=== PATIENT | female | born 1935 | race Caucasian/White ===

== ENCOUNTER 2017-02-11 04:10 | Emergency (ER) | payer OTHER, BC ==
[~2017-02-11] VITALS: Ht 157.5 cm; Wt 72.1 kg
--- NOTE | ~2017-02-11 | EKG ---
[place] [address] [facility] [place] [address] ELECTROCARDIOGRAM REPORT Name: ECTOR PEARSON [facility] [id number] Admission: 02/11/17 Attend Phys: Discharge: 02/11/17 Date of : 34 Report #: [id number] THIS REPORT FOR: //name// [facility] ED Test Date: 2017-02-11 Test Time: 04:18:04 Pat Name: ECTOR PEARSON Department: Room: Gender: F Leadership Development Consultant: KKODJOVI : 1935 Requested By: Liana Kat Order Number: [id number] MD: Torres Pereyra Measurements Intervals [place] Rate: 60 P: -13 [place]: 206 QRS: 37 QRSD: 98 T: 53 QT: 420 QTc: 420 Interpretive Statements Sinus rhythm Nonspecific ST segment abnormality No previous ECG available for comparison Electronically Signed On 02-11-2017 8:33:41 CDT by Torres Pereyra [email or web address] <ELECTRONICALLY SIGNED> By: Torres Pereyra MD, [facility] 02/11/17 0833 0418 0418 Torres Pereyra MD, FACC /EPI
[2017-02-11] MEDS ORDERED: LEVOTHYROXIN0.137 M1 PO (04:26)
[2017-02-11] MEDS ORDERED: BYSTOLIC 5 MG5 M1 PO (04:26)
[2017-02-11] MEDS ORDERED: ASPIRIN81 M2 PO (04:26)
[2017-02-11] MEDS ORDERED: REQUIP 0.25 M0.25 M1 PO (04:27)
[2017-02-11] MEDS ORDERED: LIORESAL 10 MG10 MG PO (04:27)
[2017-02-11] MEDS ORDERED: NORVASC5 MG PO (04:28)
[2017-02-11] MEDS ORDERED: DICYCLOMINE HCL10 MG PO (04:28)
[2017-02-11] MEDS ORDERED: ONDANSETRON HCL4 M2 PO (04:28)
[2017-02-11] MEDS ORDERED: OXYCONTIN10 M1 PO (04:28)
[2017-02-11] MEDS ORDERED: BUTALB-APAP-CA1 EACH PO (04:29)
[2017-02-11] MEDS ORDERED: NEXIUM 40 MG CA40 M1 PO (04:29)
[2017-02-11 04:31] LABS: ABSOLUTE NEUTROPHILS 5.1 thou/uL (1.4-8.2); BASOPHILS 0.9 % (0.0-2.0); EOSINOPHILS 0.8 % (0.0-3.0); HEMATOCRIT 43.1 % (37.0-47.0); HEMOGLOBIN 14.8 gm/dL (12.0-15.0); LYMPHOCYTES 30.1 % (24.0-44.0); MCH 29.5 pg (26.0-34.0); MCHC 34.4 g/dL (28.0-37.0); MCV 85.9 fL (80.0-100.0); MONOCYTES 6.6 % (1.0-8.0); PLATELET COUNT 199 thou/uL (150-400); POLYS 61.6 % (36.0-66.0); RBC 5.01 mil/uL (4.20-5.00); RDW 13.6 % (10.5-14.5); WBC 8.2 thou/uL (4.0-11.0)
[2017-02-11 04:33] LABS: MANUAL DIFF NO
[2017-02-11 04:40] LABS: CALCIUM 8.9 mg/dL (8.5-10.1); CREATININE 0.6 mg/dL (0.6-1.0); POTASSIUM 4.1 mmol/L (3.5-5.1)
[2017-02-11 05:22] LABS: URINE BILIRUBIN NEGATIVE (Negative); URINE BLOOD NEGATIVE (Negative); URINE COLOR YELLOW; URINE GLUCOSE-RANDOM* NEGATIVE (Negative); URINE KETONES NEGATIVE (Negative); URINE LEUKOCYTES-REFLEX TRACE (Negative); URINE PROTEIN (DIPSTICK) NEGATIVE (Negative); URINE SPECIFIC GRAVITY <= 1.005 (1.003-1.035); URINE UROBILINOGEN 0.2 E.U./dl (0.2-1.0)
[2017-02-11] MEDS ORDERED: ZOFRAN ODT4 MG DISSOLVE (07:10)
[2017-02-11] MEDS ORDERED: ANTIVERT25 MG PO (07:10)
[2017-02-11 07:27] VITALS: BP 141/55
== END 2017-02-11 07:28 | disposition home or self-care (01) ==
LOC: ER 04:10
PROVIDERS: Emergency Medicine
DX: R42 Dizziness and giddiness (principal); R10.30 Lower abdominal pain, unspecified; R51 Headache; Z88.8 Allergy status to other drugs, medicaments and biological substances; Z88.5 Allergy status to narcotic agent

== ENCOUNTER → 2017-04-30 | Outpatient (CLI) | payer OTHER, BC ==
[~2017-04-30] MED LIST: ANTIVERT25 MG PO; ASPIRIN81 M2 PO; BUTALB-APAP-CA1 EACH PO; BYSTOLIC 5 MG5 M1 PO; DICYCLOMINE HCL10 MG PO; LEVOTHYROXIN0.137 M1 PO; LIORESAL 10 MG10 MG PO; NEXIUM 40 MG CA40 M1 PO; NORVASC5 MG PO; ONDANSETRON HCL4 M2 PO; OXYCONTIN10 M1 PO; REQUIP 0.25 M0.25 M1 PO; ZOFRAN ODT4 MG DISSOLVE
== END ==
LOC: SLEEPLAB 14:35
DX: G47.33 Obstructive sleep apnea (adult) (pediatric) (principal)

== ENCOUNTER → 2017-06-04 | Outpatient (CLI) | payer OTHER, BC | LOC: RAD 11:02 | DX: J98.11 Atelectasis (principal) ==

== ENCOUNTER 2017-09-24 18:16 | Emergency (ER) | payer OTHER, BC ==
[~2017-09-24] VITALS: Ht 160 cm; Wt 81.7 kg
--- NOTE | ~2017-09-24 | EKG ---
[place] [address] [facility] [place] [address] ELECTROCARDIOGRAM REPORT Name: ECTOR PEARSON [facility]: [facility] [id number] Admission: 09/24/17 Attend Phys: Discharge: 09/24/17 Date of : 34 Report #: [id number] THIS REPORT FOR: //name// [facility] ED Test Date: 2017-09-24 Test Time: 19:33:24 Pat Name: ECTOR PEARSON Department: Room: Gender: F Deputy Treasurer: MZOOK : 1935 Requested By: Roderick Grajeda Order Number: [id number] MD: Torres Pereyra Measurements Intervals [place] Rate: 80 P: 56 KS: 196 QRS: 27 QRSD: 96 T: 56 QT: 382 QTc: 441 Interpretive Statements Sinus rhythm Borderline T abnormalities, anterior leads Compared to ECG 02/11/2017 04:18:04 T-wave abnormality now present ST (T wave) deviation no longer present Electronically Signed On 09-25-2017 7:48:39 HAM ROLLING MACHINE OPERATOR by Torres Pereyra [email or web address] <ELECTRONICALLY SIGNED> By: Torres Pereyra MD, [facility] 09/25/17 0748 32 32 Torres Pereyra MD, [facility] /EPI
[2017-09-24 19:06] LABS: HEMATOCRIT 40.7 % (37.0-47.0); HEMOGLOBIN 13.7 gm/dL (12.0-15.0); MCH 28.4 pg (26.0-34.0); MCHC 33.8 g/dL (28.0-37.0); MCV 84.2 fL (80.0-100.0); RBC 4.83 mil/uL (4.20-5.00); RDW 14.2 % (10.5-14.5)
[2017-09-24 19:15] LABS: CALCIUM 8.7 mg/dL (8.5-10.1); CREATININE 0.6 mg/dL (0.6-1.0); POTASSIUM 3.9 mmol/L (3.5-5.1)
[2017-09-24 19:21] LABS: APTT 29.6 Seconds (24.5-32.8); PROTIME 9.8 Seconds (9.3-11.4)
[2017-09-24] MEDS ORDERED: GLACIAL ACETIC A1 ML MC (19:42)
[2017-09-24] MEDS ORDERED: NEXIUM40 MG PO (19:42)
[2017-09-24 20:01] LABS: URINE BILIRUBIN NEGATIVE (Negative); URINE BLOOD NEGATIVE (Negative); URINE CLARITY CLEAR; URINE COLOR YELLOW; URINE GLUCOSE-RANDOM* NEGATIVE (Negative); URINE KETONES NEGATIVE (Negative); URINE LEUKOCYTES-REFLEX NEGATIVE (Negative); URINE NITRITE-REFLEX NEGATIVE (Negative); URINE PROTEIN (DIPSTICK) NEGATIVE (Negative); URINE SPECIFIC GRAVITY >= 1.030 (1.005-1.035); URINE UROBILINOGEN 0.2 E.U./dl (0.2-1.0)
[2017-09-24 20:20] VITALS: BP 127/52
[2018-03-18] MEDS ORDERED: ASPIR 8181 MG PO (02:34)
[2018-04-27] MEDS ORDERED: ZOFRAN ODT4 MG DISSOLVE (16:29)
[2018-04-27] MEDS ORDERED: NORFLEX100 MG PO (16:30)
== END 2017-09-24 20:21 | disposition home or self-care (01) ==
LOC: ER 18:16
PROVIDERS: Emergency Medicine
DX: I80.02 Phlebitis and thrombophlebitis of superficial vessels of left lower extremity (principal); Z88.8 Allergy status to other drugs, medicaments and biological substances

== ENCOUNTER 2017-10-03 05:50 | Emergency (ER) | payer OTHER, BC ==
[~2017-10-03] VITALS: Ht 157.5 cm; Wt 76.2 kg
--- NOTE | ~2017-10-03 | EKG ---
[place] [address] [facility] [place] [address] ELECTROCARDIOGRAM REPORT Name: ECTOR PEARSON [facility] [id number] Admission: 10/03/17 Attend Phys: Discharge: 10/03/17 Date of : 34 Report #: [id number] THIS REPORT FOR: //name// [facility] ED Test Date: 2017-10-03 Test Time: 06:03:17 Pat Name: ECTOR PEARSON Department: Room: Gender: F Oim Architect: ISRAEL : 1935 Requested By: Roderick Grajeda Order Number: [id number] MD: Cliff Lan Measurements Intervals [place] Rate: 95 P: 33 [place]: 169 QRS: 59 QRSD: 97 T: 59 QT: 366 QTc: 460 Interpretive Statements Sinus rhythm Borderline T wave abnormalities Compared to ECG 09/24/2017 19:33:24 No significant changes Electronically Signed On 10-03-2017 12:24:14 INVESTOR RELATIONS SPECIALIST by Cliff Lan [email or web address] <ELECTRONICALLY SIGNED> By: Cliff Lan MD 10/03/17 1224 0603 0603 Cliff Lan MD /EPI
[~2017-10-03 05:50] MED LIST changes: +GLACIAL ACETIC A1 ML MC; +NEXIUM40 MG PO
[2017-10-03] MEDS ORDERED: OXYCONTIN20 M1 PO (06:26)
[2017-10-03] MEDS ORDERED: OXYCONTIN10 M1 PO (06:27)
[2017-10-03] MEDS ORDERED: DOXYCYCLINE 10100 MG PO (06:29)
[2017-10-03] MEDS ORDERED: MUCINEX100 MG PO (06:30)
[2017-10-03 07:08] LABS: HEMATOCRIT 42.1 % (37.0-47.0); HEMOGLOBIN 14.1 gm/dL (12.0-15.0); MCH 28.5 pg (26.0-34.0); MCHC 33.6 g/dL (28.0-37.0); MCV 84.8 fL (80.0-100.0); RBC 4.96 mil/uL (4.20-5.00); RDW 13.9 % (10.5-14.5); WBC 6.8 thou/uL (4.0-11.0)
[2017-10-03 08:21] LABS: ALBUMIN 3.5 g/dL (3.4-5.0); CALCIUM 8.7 mg/dL (8.5-10.1); CREATININE 0.6 mg/dL (0.6-1.0); POTASSIUM 3.9 mmol/L (3.5-5.1); TOTAL BILIRUBIN 0.4 mg/dL (<0.1-1.0); TOTAL PROTEIN 6.8 g/dL (6.4-8.2)
[2017-10-03] MEDS ORDERED: PROMETHAZINE/C118 ML PO (08:52)
[2017-10-03 09:01] VITALS: BP 113/74
[2018-03-18] MEDS ORDERED: ASPIR 8181 MG PO (02:34)
[2018-04-27] MEDS ORDERED: ZOFRAN ODT4 MG DISSOLVE (16:29)
[2018-04-27] MEDS ORDERED: NORFLEX100 MG PO (16:30)
== END 2017-10-03 09:06 | disposition home or self-care (01) ==
LOC: ER 05:50
PROVIDERS: Emergency Medicine
DX: R53.1 Weakness (principal); R05 Cough; Z88.8 Allergy status to other drugs, medicaments and biological substances

== ENCOUNTER → 2017-10-07 | Outpatient (CLI) | payer OTHER, BC ==
[~2017-10-07] MED LIST changes: +ASPIR 8181 MG PO; +AUGMENTIN 875-1 EACH PO; +DOXYCYCLINE 10100 MG PO; +LISINOPRIL5 MG PO; +MUCINEX100 MG PO; +NORFLEX100 MG PO; +OXYCONTIN20 M1 PO; +PROMETHAZINE/C118 ML PO
== END ==
LOC: RAD 09:02
DX: R05 Cough (principal)

== ENCOUNTER → 2017-12-31 | Outpatient (CLI) | payer OTHER, BC ==
[~2017-12-31] MED LIST changes: -ASPIR 8181 MG PO; -AUGMENTIN 875-1 EACH PO; -LISINOPRIL5 MG PO; -NORFLEX100 MG PO
== END ==
LOC: SLEEPLAB 10:26
DX: G47.30 Sleep apnea, unspecified (principal)

== ENCOUNTER → 2018-01-01 | Outpatient (CLI) | payer OTHER, BC ==
[2018-01-01 08:18] LABS: CREATININE 0.6 mg/dL (0.6-1.0)
== END ==
LOC: CAT 07:34
DX: R91.8 Other nonspecific abnormal finding of lung field (principal); I70.0 Atherosclerosis of aorta; Z90.49 Acquired absence of other specified parts of digestive tract

== ENCOUNTER 2018-01-23 18:54 | Emergency (ER) | payer OTHER, BC ==
[~2018-01-23] VITALS: Ht 157.5 cm; Wt 75.3 kg
[2018-01-23] MEDS ORDERED: LISINOPRIL5 MG PO (19:17)
[2018-01-23] MEDS ORDERED: AUGMENTIN 875-1 EACH PO (20:35)
[2018-01-23 20:57] VITALS: BP 140/62
== END 2018-01-23 22:03 | disposition home or self-care (01) ==
LOC: ER 18:54
DX: S61.012A Laceration without foreign body of left thumb without damage to nail, initial encounter (principal); W54.0XXA Bitten by dog, initial encounter; Y93.89 Activity, other specified; Y92.89 Other specified places as the place of occurrence of the external cause; Y99.8 Other external cause status; Z88.8 Allergy status to other drugs, medicaments and biological substances

== ENCOUNTER → 2018-02-26 | Outpatient (CLI) | payer OTHER, BC ==
[~2018-02-26] MED LIST changes: +AUGMENTIN 875-1 EACH PO; +LISINOPRIL5 MG PO
== END ==
LOC: RAD 09:11
DX: M19.042 Primary osteoarthritis, left hand (principal)

== ENCOUNTER → 2018-04-30 | Outpatient (CLI) | payer OTHER, BC ==
[~2018-04-30] VITALS: Ht 157.5 cm; Wt 73.5 kg
[~2018-04-30] MED LIST changes: +ASPIR 8181 MG PO; +NORFLEX100 MG PO
--- NOTE | ~2018-04-30 | PATH ---
[facility] [place] [address] PATHOLOGY RPT PROCEDURE Name: MICHELECTOR Room #: REG [facility].#: [id number] Admission: 04/30/18 Date of : 34 Discharge: Report #: [id number] Path Case #: [id number] [facility] Accession Number: [id number] . 01 Material submitted: . PART A: POLYP AT 30 CM PART B: POLYP AT PROXIMAL ASCENDING COLON PART C: POLYP AT 80 CM PART D: POLYP AT 70 CM PART E: POLYP AT RECTUM . 01 Clinician provided ICD-10: Z12.11 R19.4 . 01 Clinical history: . Pre-OP DX: Screening, change in bowel habits Post-OP DX: Colon polyps . 02 Diagnosis: A. Polyp, at 30 cm, endoscopic biopsy: - Tubular adenoma. - Negative for high-grade dysplasia. . B. Polyp, at proximal ascending colon, endoscopic biopsy: - Inflamed tubular adenoma. - Negative for high-grade dysplasia. . C. Polyp, at 80 cm, endoscopic biopsy: - Tubular adenoma. - Negative for high-grade dysplasia. . D. Polyp at 70 cm, endoscopic biopsy: - Compatible with a hyperplastic polyp, minute. - Negative for dysplasia. . E. Polyp, at rectum, endoscopic biopsy: - Tubular adenoma. - Negative for high-grade dysplasia. (IUV:natalie; 05/03/2018) QMS/05/03/2018 . 02 Electronically signed: . Reanna Persaud MD, Pathologist NPI- [id number] . 01 Gross description: . [facility] [address] [place] [address] PATHOLOGY RPT PROCEDURE Name: ECTOR PEARSON Room #: REG [facility]#: [id number] Admission: 04/30/18 Date of : 34 Discharge: Report #: [id number] Path Case #: [id number] A. Received in formalin labeled "Ector Pearson, polyp at 30 cm," are 3 segments of finley soft tissue measuring 1.3 x 0.8 x 0.5 cm in aggregate dimensions and ranging from 0.5 to 0.6 cm in maximum dimension. The specimen is submitted entirely in cassette A1. . B. Received in formalin labeled "Ector Pearson, polyp at proximal ascending colon," is a single segment of finley soft tissue measuring 0.5 cm in maximum dimension. The specimen is entirely submitted in cassette B1. . C. Received in formalin labeled "cEtor Pearson, polyp at 80 cm," is a single segment of finley soft tissue measuring 0.5 cm in maximum dimension. The specimen is entirely submitted in cassette C1. . D. Received in formalin labeled "Ector Pearson, polyp at 70 cm" is a single segment of finley soft tissue measuring 0.4 cm in maximum dimension. The specimen is entirely submitted in cassette D1. . E. Received in formalin labeled "Ector Pearson, polyp rectum," is a single segment of finley soft tissue measuring 0.6 cm in maximum dimension. The specimen is entirely submitted in cassette E1. (TSD; 04/30/2018) TOB/TOB . 02 Pathologist provided ICD-10: D12.6, D12.2, K63.5, D12.8 . 02 CPT . 375256, 564314, 802625, 615606, 329950 Specimen Comment: A courtesy copy of this report has been sent to Specimen Comment: [phone], . Specimen Comment: Report sent to and Specimen Comment: A duplicate report has been generated due to demographic updates. Performed at: [address], [place], [place] [id number] MD Saji Delgadillo MD Phone: [phone] Performed at: [address] [facility] [address] [id number] MD Reanna Persaud MD Phone: [phone]
--- NOTE | ~2018-04-30 | P ---
[facility] [place] [address] PROCEDURE REPORT Name: ECTOR PEARSON Room #: REG [facility]#: [id number] Admission: 04/30/18 Attend Phys: Vasyl Choi MD Discharge: Date of : 34 Report #: [id number] THIS REPORT FOR: //name// CC: Vasyl Pena BRIEF HISTORY: The patient is an 83-year-old woman with change of bowel habits and worsening constipation. She has also had diffuse lower abdominal pain as well. PREOPERATIVE DIAGNOSIS: Change in bowel habits and abdominal pain. POSTOPERATIVE DIAGNOSIS: Multiple colon polyps. MEDICATIONS: Deep sedation with propofol and ketamine. SPECIMENS: 1. Polyp from 30 cm. 2. Polyp, proximal ascending colon. 3. Polyp at 80 cm. 4. Polyp at 70 cm. 5. Rectal polyp. ESTIMATED BLOOD LOSS: 3 mL. PROCEDURE: Colonoscopy to cecum and terminal ileum with snare polypectomy and biopsy. FINDINGS: Prior to propofol sedation, procedure of colonoscopy was discussed with the patient as well as potential risks and its complications. She indicates she understands and desires to proceed. With the patient in left lateral decubitus position, digital examination was completed, which revealed no abnormalities. Subsequently, the Olympus video colonoscope was introduced in the rectum, advanced under direct vision to the cecum. Done with minimal difficulty. Cecum was reached, identified by the ileocecal valve and the appendiceal orifice. I was able to visualize the distal segment of the terminal ileum, which was inspected and noted to be unremarkable. At that point, the scope was slowly withdrawn and careful circumferential views were obtained. Upon slow withdrawal of the scope, the prep was good. The mucosa was within normal limits, normal vascular pattern, normal light reflex. As we withdrew the scope, a diminutive polyp was seen and identified in the proximal ascending colon, removed with biopsy forceps. The scope was further withdrawn and a 4 mm polyp was seen at 80 cm, removed with multiple biopsies. At 70 cm, a diminutive polyp was seen and removed by forceps biopsies. At 30 cm, a 6 mm sessile polyp was seen and removed by cold snare polypectomy. In the [address] [address] PROCEDURE REPORT Name: ECTOR PEARSON Room #: REG [facility].#: [id number] Admission: 04/30/18 Attend Phys: Vasyl Choi MD Discharge: Date of : 34 Report #: [id number] rectum, a 3 x 6 mm sessile polyp was seen and removed by cold snare polypectomy. Additional findings included mild sigmoid diverticular disease. Upon retroflexion, no additional abnormalities were seen. Scope was withdrawn and the patient tolerated the procedure. CONDITION OF THE PATIENT UPON DISCHARGE: Following procedure, the patient drowsy, aroused, conversant and will be discharged home when fully ambulatory. INSTRUCTIONS TO THE PATIENT AND FAMILY AT THE TIME OF DISCHARGE: As for change in bowel habits and constipation, abdominal pain, I do not see any obstructing lesions. I suggest high-fiber diet. We will discuss with the patient, we could try Linzess 145 mcg daily. If that does not alleviate her symptoms, she is to return for followup in the office. As far as her abdominal pain, I do not see any lesions to explain pain. If pain continues to be a problem, she should follow up with Dr. Christo Pena. Potentially, a CT scan of the abdomen and pelvis not done may be a consideration. Previous colonoscopy was about 5 years ago per the patient report. Withdrawal time from the cecum was 13 minutes and 59 seconds. <ELECTRONICALLY SIGNED> By: Vasyl Choi MD 05/10/18 1044 1126 1257 Vasyl Choi MD /nt
== END | disposition home or self-care (01) ==
LOC: GI 08:27
DX: D12.2 Benign neoplasm of ascending colon (principal); D12.5 Benign neoplasm of sigmoid colon; D12.4 Benign neoplasm of descending colon; D12.8 Benign neoplasm of rectum; K63.5 Polyp of colon; K57.30 Diverticulosis of large intestine without perforation or abscess without bleeding; I10 Essential (primary) hypertension; G47.33 Obstructive sleep apnea (adult) (pediatric); K21.9 Gastro-esophageal reflux disease without esophagitis; Z98.41 Cataract extraction status, right eye; Z98.42 Cataract extraction status, left eye; Z87.19 Personal history of other diseases of the digestive system; Z79.899 Other long term (current) drug therapy; Z85.3 Personal history of malignant neoplasm of breast; Z88.8 Allergy status to other drugs, medicaments and biological substances; Z79.82 Long term (current) use of aspirin
CPT/HCPCS: 62110; 62900

== ENCOUNTER → 2018-06-09 | Outpatient (CLI) | payer OTHER, BC ==
[2018-06-09 09:41] LABS: CREATININE 0.6 mg/dL (0.6-1.0)
== END ==
LOC: CAT 08:58 → EDSTATUS 09:16 → CAT 15:00
PROVIDERS: Family Medicine
DX: I70.0 Atherosclerosis of aorta (principal); R91.8 Other nonspecific abnormal finding of lung field

== ENCOUNTER 2018-06-29 14:12 | Emergency (ER) | payer OTHER, BC ==
[~2018-06-29] VITALS: Ht 157.5 cm; Wt 74.8 kg
--- NOTE | ~2018-06-29 | EKG ---
[place] [address] [facility] [place] [address] ELECTROCARDIOGRAM REPORT Name: ECTOR PEARSON Room #: [facility]#: [id number] Admission: 06/29/18 Attend Phys: Discharge: 06/29/18 Date of : 34 Report #: [id number] THIS REPORT FOR: //name// [facility] ED Test Date: 2018-06-29 Test Time: 14:44:37 Pat Name: ECTOR PEARSON Department: Room: Gender: F Peer Educator: SOPHIE : 1935 Requested By: Vivek Argueta Order Number: [id number] MD: Torres Pereyra Measurements Intervals [place] Rate: 86 P: -3 MS: 185 QRS: 34 QRSD: 100 T: 61 QT: 374 QTc: 448 Interpretive Statements Sinus rhythm No significant abnormality Compared to ECG 10/03/2017 06:03:17 No significant change was found Electronically Signed On 06-30-2018 8:42:37 BLOW MOLD MACHINE OPERATOR by Torres Pereyra [email or web address] <ELECTRONICALLY SIGNED> By: Torres Pereyra MD, [facility] 06/30/18 0842 1444 1444 Torres Pereyra MD, FACC /EPI
[2018-06-29 15:47] LABS: ABSOLUTE NEUTROPHILS 4.6 thou/uL (1.4-8.2); BASOPHILS 0.9 % (0.0-2.0); EOSINOPHILS 1.6 % (0.0-3.0); HEMATOCRIT 44.4 % (37.0-47.0); HEMOGLOBIN 15.1 gm/dL (12.0-15.0); LYMPHOCYTES 32.4 % (24.0-44.0); MCH 28.5 pg (26.0-34.0); MCHC 34.1 g/dL (28.0-37.0); MCV 83.5 fL (80.0-100.0); MONOCYTES 6.9 % (1.0-8.0); PLATELET COUNT 183 thou/uL (150-400); POLYS 58.2 % (36.0-66.0); RBC 5.32 mil/uL (4.20-5.00); RDW 14.7 % (10.5-14.5); WBC 7.9 thou/uL (4.0-11.0)
[2018-06-29 16:02] LABS: ANION GAP 7 mmol/L (7-16); BUN 10 mg/dL (7-18); CALCIUM 8.5 mg/dL (8.5-10.1); CHLORIDE 103 mmol/L (98-107); CO2 30 mmol/L (21-32); CREATININE 0.7 mg/dL (0.6-1.0); GLUCOSE 93 mg/dL (74-106); POTASSIUM 3.8 mmol/L (3.5-5.1); SODIUM 140 mmol/L (136-145); TROPONIN-I <0.06 ng/mL (<0.06)
[2018-06-29] MEDS ORDERED: PERCOCET PO (16:59)
[2018-06-29] MEDS ORDERED: NORFLEX100 MG PO (16:59)
[2018-06-29] MEDS ORDERED: NAPROXEN375 MG PO (16:59)
[2018-06-29 17:30] VITALS: BP 92/56
[2018-06-29 18:28] LABS: CALCIUM 9.3 mg/dL (8.5-10.1); CREATININE 0.7 mg/dL (0.6-1.0)
[2018-06-29 18:35] LABS: ALBUMIN 3.7 g/dL (3.4-5.0); MAGNESIUM 2.2 mg/dL (1.8-2.4); TOTAL BILIRUBIN 0.5 mg/dL (<0.1-1.0); TOTAL PROTEIN 7.4 g/dL (6.4-8.2)
== END 2018-06-29 17:59 | disposition home or self-care (01) ==
LOC: ER 14:12
PROVIDERS: Emergency Medicine
DX: R07.89 Other chest pain (principal); M43.6 Torticollis; M54.16 Radiculopathy, lumbar region; I10 Essential (primary) hypertension; K21.9 Gastro-esophageal reflux disease without esophagitis; G47.30 Sleep apnea, unspecified; Z90.710 Acquired absence of both cervix and uterus; Z90.49 Acquired absence of other specified parts of digestive tract; Z90.13 Acquired absence of bilateral breasts and nipples; Z85.3 Personal history of malignant neoplasm of breast; Z88.8 Allergy status to other drugs, medicaments and biological substances

== ENCOUNTER 2018-08-08 08:33 | Emergency (ER) | payer OTHER, BC ==
[~2018-08-08] VITALS: Ht 157.5 cm; Wt 76.2 kg
[~2018-08-08 08:33] MED LIST changes: +NAPROXEN375 MG PO; +PERCOCET PO
[2018-08-08 08:35] VITALS: BP 156/84
[2018-08-08 09:08] LABS: URINE BILIRUBIN NEGATIVE (Negative); URINE BLOOD NEGATIVE (Negative); URINE CLARITY CLEAR; URINE COLOR YELLOW; URINE GLUCOSE-RANDOM* NEGATIVE (Negative); URINE KETONES NEGATIVE (Negative); URINE LEUKOCYTES-REFLEX TRACE (Negative); URINE NITRITE-REFLEX NEGATIVE (Negative); URINE PROTEIN (DIPSTICK) NEGATIVE (Negative); URINE SPECIFIC GRAVITY 1.015 (1.005-1.035); URINE UROBILINOGEN 0.2 E.U./dl (0.2-1.0)
[2018-08-08 09:49] LABS: ABSOLUTE NEUTROPHILS 6.6 thou/uL (1.4-8.2); BASOPHILS 0.4 % (0.0-2.0); EOSINOPHILS 2.1 % (0.0-3.0); HEMATOCRIT 45.6 % (37.0-47.0); HEMOGLOBIN 15.5 gm/dL (12.0-15.0); LYMPHOCYTES 16.2 % (24.0-44.0); MCH 28.6 pg (26.0-34.0); MCV 84.1 fL (80.0-100.0); MONOCYTES 6.7 % (1.0-8.0); PLATELET COUNT 189 thou/uL (150-400); POLYS 74.6 % (36.0-66.0); RBC 5.43 mil/uL (4.20-5.00); RDW 14.5 % (10.5-14.5); WBC 8.8 thou/uL (4.0-11.0)
[2018-08-08 09:56] LABS: CALCIUM 9.2 mg/dL (8.5-10.1); CREATININE 0.7 mg/dL (0.6-1.0); POTASSIUM 4.1 mmol/L (3.5-5.1)
[2018-08-08] MEDS ORDERED: IBUPROFEN 400400 M2 PO (10:51)
[2018-08-08] MEDS ORDERED: FLONASE 0.05%50 MCG NASAL (10:51)
[2018-08-08] MEDS ORDERED: CLARITIN10 MG PO (10:51)
--- NOTE | 2018-08-08 22:18 | EKG ---
[address] [address] ELECTROCARDIOGRAM REPORT Name: ECOTR PEARSON Room #: DEP [facility]#: [id number] Admission: 08/08/18 Attend Phys: Discharge: 08/08/18 Date of : 34 Report #: [id number] THIS REPORT FOR: //name// [facility] ED Test Date: 2018-08-08 Test Time: 09:13:43 Pat Name: ECTOR PEARSON Department: Room: Gender: F Pot Room Supervisor: as : 1935 Requested By: Tiesha Gillespie Order Number: [id number] MD: Gui Gifford Measurements Intervals [place] Rate: 82 P: 35 KS: 176 QRS: 30 QRSD: 93 T: 73 QT: 377 QTc: 441 Interpretive Statements Sinus rhythm Borderline T abnormalities, anterior leads Compared to ECG 06/29/2018 14:44:37 T-wave abnormality now present Electronically Signed On 08-08-2018 22:18:24 FIRE EATER by Gui Gifford [email or web address] <ELECTRONICALLY SIGNED> By: Gui Gifford MD 08/08/18 2218 2 2 Gui Gifford MD /GIULIANO
== END 2018-08-08 11:14 | disposition home or self-care (01) ==
LOC: ER 08:33
PROVIDERS: Student in an Organized Health Care Education/Training Program
DX: H93.93 Unspecified disorder of ear, bilateral (principal); I10 Essential (primary) hypertension; K21.9 Gastro-esophageal reflux disease without esophagitis; G47.30 Sleep apnea, unspecified; Z90.710 Acquired absence of both cervix and uterus; Z90.49 Acquired absence of other specified parts of digestive tract; Z88.8 Allergy status to other drugs, medicaments and biological substances

== ENCOUNTER 2018-08-29 15:08 | Emergency (ER) | payer OTHER, BC ==
[~2018-08-29] VITALS: Ht 152.4 cm; Wt 62.6 kg
[~2018-08-29 15:08] MED LIST changes: +CLARITIN10 MG PO; +FLONASE 0.05%50 MCG NASAL; +IBUPROFEN 400400 M2 PO
[2018-08-29 16:13] LABS: ABSOLUTE NEUTROPHILS 7.5 thou/uL (1.4-8.2); BASOPHILS 0.3 % (0.0-2.0); EOSINOPHILS 2.4 % (0.0-3.0); HEMATOCRIT 42.7 % (37.0-47.0); HEMOGLOBIN 14.8 gm/dL (12.0-15.0); LYMPHOCYTES 15.6 % (24.0-44.0); MCH 28.6 pg (26.0-34.0); MCHC 34.6 g/dL (28.0-37.0); MCV 82.8 fL (80.0-100.0); MONOCYTES 6.6 % (1.0-8.0); PLATELET COUNT 201 thou/uL (150-400); POLYS 75.1 % (36.0-66.0); RBC 5.15 mil/uL (4.20-5.00); RDW 14.1 % (10.5-14.5)
[2018-08-29 16:22] LABS: CALCIUM 9.2 mg/dL (8.5-10.1); CREATININE 0.7 mg/dL (0.6-1.0); POTASSIUM 4.2 mmol/L (3.5-5.1)
[2018-08-29 16:29] LABS: ALBUMIN 3.6 g/dL (3.4-5.0); TOTAL BILIRUBIN 0.3 mg/dL (<0.1-1.0); TOTAL PROTEIN 7.2 g/dL (6.4-8.2)
[2018-08-29] MEDS ORDERED: AZITHROMYCIN 2250 MG PO (16:38)
[2018-08-29 16:53] VITALS: BP 148/94
== END 2018-08-29 16:53 | disposition home or self-care (01) ==
LOC: ER 15:08
PROVIDERS: Emergency Medicine
DX: J18.9 Pneumonia, unspecified organism (principal); J40 Bronchitis, not specified as acute or chronic; I10 Essential (primary) hypertension; K21.9 Gastro-esophageal reflux disease without esophagitis; Z90.49 Acquired absence of other specified parts of digestive tract; Z90.710 Acquired absence of both cervix and uterus; Z88.8 Allergy status to other drugs, medicaments and biological substances

== ENCOUNTER 2019-08-28 22:29 | Emergency (ER) | payer OTHER, BC ==
[~2019-08-28] VITALS: Ht 157.5 cm; Wt 77.1 kg
[~2019-08-28 22:29] MED LIST changes: +AZITHROMYCIN 2250 MG PO
[2019-08-28 23:53] LABS: ABSOLUTE NEUTROPHILS 5.1 thou/uL (1.4-8.2); BASOPHILS 0.8 % (0.0-2.0); HEMATOCRIT 44.5 % (37.0-47.0); HEMOGLOBIN 14.9 gm/dL (12.0-15.0); LYMPHOCYTES 27.1 % (24.0-44.0); MCH 28.4 pg (26.0-34.0); MCHC 33.5 g/dL (28.0-37.0); MCV 84.8 fL (80.0-100.0); MONOCYTES 6.8 % (1.0-8.0); PLATELET COUNT 210 thou/uL (150-400); POLYS 63.3 % (36.0-66.0); RBC 5.25 mil/uL (4.20-5.00); RDW 14.8 % (10.5-14.5)
[2019-08-29 00:11] LABS: ANION GAP 6 mmol/L (7-16); BUN 11 mg/dL (7-18); CALCIUM 9.3 mg/dL (8.5-10.1); CHLORIDE 103 mmol/L (98-107); CO2 30 mmol/L (21-32); CREATININE 0.7 mg/dL (0.6-1.0); GLUCOSE 108 mg/dL (74-106); POTASSIUM 4.5 mmol/L (3.5-5.1); SODIUM 139 mmol/L (136-145)
[2019-08-29 00:20] LABS: ALBUMIN 3.7 g/dL (3.4-5.0); LIPASE 64 U/L (73-393); SGOT 20 U/L (15-37); SGPT 23 U/L (30-65); TOTAL BILIRUBIN 0.3 mg/dL (<0.1-1.0); TOTAL PROTEIN 7.2 g/dL (6.4-8.2); TROPONIN-I <0.06 ng/mL (<0.06)
[2019-08-29 01:58] VITALS: BP 112/56
--- NOTE | 2019-08-29 15:01 | EKG ---
[address] [address] ELECTROCARDIOGRAM REPORT Name: ECTOR PEARSON [facility] [id number] Admission: 08/28/19 Attend Phys: Discharge: 08/29/19 Date of : 34 Report #: [id number] THIS REPORT FOR: //name// [facility] ED Test Date: 2019-08-28 Test Time: 23:10:32 Pat Name: ECTOR PEARSON Department: Room: Gender: F Client Service Executive: debra : 1935 Requested By: Eric Dorsey Order Number: [id number] MD: Gui Gifford Measurements Intervals [place] Rate: 80 P: 54 MA: 179 QRS: 29 QRSD: 99 T: 76 QT: 402 QTc: 464 Interpretive Statements Sinus rhythm Compared to ECG 08/08/2018 09:13:43 T-wave abnormality no longer present Electronically Signed On 08-29-2019 15:00:39 SLOTS MANAGER by Gui Gifford [email or web address] <ELECTRONICALLY SIGNED> By: Gui Gifford MD 08/29/19 1500 231 2310 Gui Gifford MD /GIULIANO
== END 2019-08-29 02:03 | disposition home or self-care (01) ==
LOC: ER 22:29
PROVIDERS: Emergency Medicine
DX: R10.13 Epigastric pain (principal); I10 Essential (primary) hypertension; R19.5 Other fecal abnormalities; K21.9 Gastro-esophageal reflux disease without esophagitis; D32.9 Benign neoplasm of meninges, unspecified; Z90.710 Acquired absence of both cervix and uterus; Z88.8 Allergy status to other drugs, medicaments and biological substances; Z90.49 Acquired absence of other specified parts of digestive tract; Z79.899 Other long term (current) drug therapy

== ENCOUNTER 2019-09-19 14:02 | Emergency (ER) | payer OTHER ==
[~2019-09-19] VITALS: Ht 157.5 cm; Wt 77.1 kg
[2019-09-19 14:26] LABS: ABSOLUTE NEUTROPHILS 6.8 thou/uL (1.4-8.2); BASOPHILS 0.5 % (0.0-2.0); EOSINOPHILS 2.3 % (0.0-3.0); HEMATOCRIT 46.2 % (37.0-47.0); HEMOGLOBIN 15.2 gm/dL (12.0-15.0); LYMPHOCYTES 16.4 % (24.0-44.0); MCH 28.1 pg (26.0-34.0); MCHC 32.8 g/dL (28.0-37.0); MCV 85.8 fL (80.0-100.0); MONOCYTES 6.5 % (1.0-8.0); PLATELET COUNT 214 thou/uL (150-400); POLYS 74.3 % (36.0-66.0); RBC 5.38 mil/uL (4.20-5.00); RDW 14.8 % (10.5-14.5); WBC 9.1 thou/uL (4.0-11.0)
[2019-09-19 14:49] LABS: CALCIUM 9.1 mg/dL (8.5-10.1); CREATININE 0.7 mg/dL (0.6-1.0); POTASSIUM 4.1 mmol/L (3.5-5.1)
[2019-09-19 14:54] LABS: ALBUMIN 3.8 g/dL (3.4-5.0); TOTAL BILIRUBIN 0.5 mg/dL (<0.1-1.0); TOTAL PROTEIN 7.6 g/dL (6.4-8.2)
[2019-09-19] MEDS ORDERED: ZOFRAN4 MG PO (17:08)
[2019-09-19 19:04] VITALS: BP 150/69
[2019-09-23] MEDS ORDERED: LEVOTHYROXINE112 MCG PO (09:19)
[2019-09-23] MEDS ORDERED: LISINOPRIL5 MG PO (09:24)
== END 2019-09-19 19:07 | disposition home or self-care (01) ==
LOC: ER 14:02
PROVIDERS: Emergency Medicine
DX: R10.13 Epigastric pain (principal); R10.11 Right upper quadrant pain; I10 Essential (primary) hypertension; K21.9 Gastro-esophageal reflux disease without esophagitis; G47.30 Sleep apnea, unspecified; Z90.13 Acquired absence of bilateral breasts and nipples; Z90.710 Acquired absence of both cervix and uterus; Z90.49 Acquired absence of other specified parts of digestive tract; Z88.8 Allergy status to other drugs, medicaments and biological substances

== ENCOUNTER → 2019-09-26 | Outpatient (CLI) | payer OTHER, BC ==
[~2019-09-26] VITALS: Ht 157.5 cm; Wt 77.1 kg
[~2019-09-26] MED LIST changes: +LEVOTHYROXINE112 MCG PO; +ZOFRAN4 MG PO
--- NOTE | 2019-09-26 17:37 | P ---
[facility] [place] [address] PROCEDURE REPORT Name: ECTOR PEARSON Room #: REG [facility] GaitanAleyda#: [id number] Admission: 09/26/19 Attend Phys: Vasyl Choi MD Discharge: Date of : 34 Report #: [id number] THIS REPORT FOR: cc: Vasyl Gomez MD, John R. MD Thesing,Vasyl Nye MD ~ CC: Vasyl Choi DATE OF SERVICE: 09/26/2019 BRIEF HISTORY: The patient is an 84-year-old woman recently seen in the office with complaints of nausea on a daily basis. It is noted she does use OxyContin chronically for chronic pain. She also has burning in the epigastrium and burning in her chest. She denies dysphagia. She reports that she was told she had erosions in [place] number of years ago at the time of endoscopy. It is noted that she does take aspirin, I believe her headaches. PREOPERATIVE DIAGNOSIS: Epigastric pain, nausea and chest burning symptoms. POSTOPERATIVE DIAGNOSES: 1. Moderate erosive gastritis involving stomach, involving antrum to a lesser degree, body of stomach. 2. Small hiatus hernia. 3. Grade A erosive esophagitis. MEDICATIONS: Deep sedation per anesthesia. SPECIMEN: Biopsies of erosive gastritis. ESTIMATED BLOOD LOSS: 3 mL. PROCEDURE: EGD with biopsy. FINDINGS: Prior to propofol sedation, procedure of upper endoscopy discussed with the patient as well as potential risks and its complications. She indicates she understands and desires to proceed. DESCRIPTION OF PROCEDURE: With the patient in left lateral decubitus position, the Olympus video endoscope was inserted in the cervical esophagus under direct vision without difficulty. Examination of this organ through its entire length revealed normal esophageal mucosa down the squamocolumnar junction. However, at the squamocolumnar junction, the patient was found to have evidence of grade A esophagitis. There was no evidence of strictures or Shah mucosa. Mass lesion was not seen. The scope was advanced and she was noted to have [facility] [address] [place] [address] PROCEDURE REPORT Name: ECTOR PEARSON Room #: REG [facility]#: [id number] Admission: 09/26/19 Attend Phys: Vasyl Choi MD Discharge: Date of : 34 Report #: [id number] approximately 2 cm sliding type hiatus hernia. Mucosa and hernia was unremarkable. The scope was advanced fully into the stomach, which was examined on end view as well as retroflexed views. Upon retroflexion, the hernia was seen in the proximal stomach with no other abnormalities were identified. The mucosa in the proximal stomach was unremarkable. However, examination of the distal stomach revealed moderate erosive gastritis in the antrum of the stomach. There were also a few erosions in the distal body of the stomach. No ulcers were seen. There were no retained solids or liquids. There was no evidence of outlet obstruction. The pylorus was patulous. Examination of the duodenal bulb and postbulbar duodenal sweep revealed normal appearing mucosa. At that point, the scope was slowly withdrawn and careful circumferential views confirmed the above finding. Biopsies obtained of the erosive gastritis. The patient tolerated the procedure well. CONDITION OF THE PATIENT UPON DISCHARGE: Following procedure, the patient drowsy, aroused, conversant and will be discharged home when fully ambulatory. INSTRUCTIONS TO THE PATIENT AND FAMILY AT THE TIME OF DISCHARGE: The patient with findings of erosive changes noted above. She does not have ulcers. These are likely result of her use of aspirin. She also has evidence of reflux disease. At this point in time, would encourage her to try to reduce aspirin if at all possible. We will place her on omeprazole 40 mg daily. She does have some nausea symptoms. I do not see endoscopic evidence of gastroparesis. This may be a result of her chronic use of OxyContin. It is also noted, she has had some constipation issues. She reports today that those have improved. We will have her return to see me in followup in the office and make further recommendations for long-term management. <ELECTRONICALLY SIGNED> By: Vasyl Choi MD 09/26/19 1737 0851 0925 Vasyl Choi MD /nt
--- NOTE | 2019-09-28 17:07 | PATH ---
[facility] [place] [address] PATHOLOGY RPT PROCEDURE Name: JAYSHREE PEARSONTARA Flynn Room #: REG [facility] Kandy.#: [id number] Admission: 09/26/19 Date of : 34 Discharge: Report #: [id number] Path Case #: [id number] [facility] Accession Number: [id number] . 01 Material submitted: . stomach - BX OF EROSIONS,ANTRUM OF STOMACH . 01 Clinical history: . Pre-op diagnosis: Abdominal pain, burning Post-op diagnosis: Antral erosions, hiatal hernia, esophagitis, erosive gastritis . 02 Diagnosis: Gastric mucosa, antrum of stomach, endoscopic biopsy: - Mild reactive gastropathy. - Negative for intestinal metaplasia or atrophy. - Negative for Helicobacter pylori (properly controlled immunohistochemical stain performed). (IUV:agus; 09/28/2019) MBR 09/28/2019 1129 Local . 02 Electronically signed: . Reanna Persaud MD, Pathologist NPI- [id number] . 01 Gross description: . The specimen is received in formalin, labeled "Ector Pearson, biopsy of erosions antrum of stomach". Received are six segments of pale finley soft tissue ranging in size from 0.3 to 0.8 cm in maximum dimensions. The specimen is submitted entirely in cassette A1. (CAA; 09/27/2019) QA/QA 09/27/2019 1107 Local . 02 Pathologist provided ICD-10: K31.9 . 02 CPT . 712451, V47601 Specimen Comment: A courtesy copy of this report has been sent to [phone] Specimen Comment: [phone], Specimen Comment: Report sent to , and Performed at: [address] [id number] MD Saji Delgadillo MD Phone: [phone] Performed at: [address] [address] PATHOLOGY RPT PROCEDURE Name: ECTOR PEARSON Room #: REG GI[facility] Mercado#: [id number] Admission: 09/26/19 Date of : 34 Discharge: Report #: [id number] Path Case #: [id number] [facility] [address] [id number] MD Reanna Persaud MD Phone: [phone]
== END | disposition home or self-care (01) ==
LOC: GI 07:03
DX: R10.13 Epigastric pain (principal); K31.9 Disease of stomach and duodenum, unspecified; K44.9 Diaphragmatic hernia without obstruction or gangrene; K22.10 Ulcer of esophagus without bleeding; K29.70 Gastritis, unspecified, without bleeding; I10 Essential (primary) hypertension; K21.9 Gastro-esophageal reflux disease without esophagitis; G47.30 Sleep apnea, unspecified; Z98.890 Other specified postprocedural states; Z79.899 Other long term (current) drug therapy; Z98.41 Cataract extraction status, right eye; Z87.19 Personal history of other diseases of the digestive system; Z85.3 Personal history of malignant neoplasm of breast; Z98.42 Cataract extraction status, left eye; Z90.710 Acquired absence of both cervix and uterus; Z90.49 Acquired absence of other specified parts of digestive tract; Z88.8 Allergy status to other drugs, medicaments and biological substances; Z79.82 Long term (current) use of aspirin
CPT/HCPCS: 62110; 62900

== ENCOUNTER 2019-12-30 20:43 | Emergency (ER) | payer OTHER, BC ==
[~2019-12-30] VITALS: Ht 157.5 cm; Wt 78.9 kg
[2019-12-30 22:10] LABS: BASOPHILS 0.4 % (0.0-2.0); EOSINOPHILS 1.9 % (0.0-3.0); HEMATOCRIT 42.1 % (37.0-47.0); HEMOGLOBIN 14.3 gm/dL (12.0-15.0); LYMPHOCYTES 36.1 % (24.0-44.0); MCV 85.3 fL (80.0-100.0); MONOCYTES 7.1 % (1.0-8.0); PLATELET COUNT 196 thou/uL (150-400); POLYS 54.5 % (36.0-66.0); RBC 4.94 mil/uL (4.20-5.00); RDW 14.6 % (10.5-14.5); WBC 7.4 thou/uL (4.0-11.0)
[2019-12-30 22:10] LABS: URINE BILIRUBIN NEGATIVE (Negative); URINE BLOOD NEGATIVE (Negative); URINE CLARITY CLEAR; URINE COLOR YELLOW; URINE GLUCOSE-RANDOM* NEGATIVE (Negative); URINE KETONES NEGATIVE (Negative); URINE NITRITE-REFLEX NEGATIVE (Negative); URINE PROTEIN (DIPSTICK) NEGATIVE (Negative); URINE SPECIFIC GRAVITY <= 1.005 (1.005-1.035); URINE UROBILINOGEN 0.2 E.U./dl (0.2-1.0)
[2019-12-30 22:11] LABS: URINE LEUKOCYTES-REFLEX 1+ (Negative)
[2019-12-30 22:16] LABS: BACTERIA-REFLEX 1-9 Few /HPF (None Seen); CASTS None Seen /LPF (None Seen); CRYSTALS None Seen /LPF (None Seen); SQUAMOUS 0-3 Few /LPF (0-3); URINE RBC None Seen /HPF (0-2); URINE WBC-REFLEX 0-5 Rare /HPF (0-5)
[2019-12-30 23:07] LABS: ANION GAP 9 mmol/L (7-16); BUN 11 mg/dL (7-18); CALCIUM 8.1 mg/dL (8.5-10.1); CHLORIDE 100 mmol/L (98-107); CO2 24 mmol/L (21-32); CREATININE 0.8 mg/dL (0.6-1.0); GLUCOSE 107 mg/dL (74-106); POTASSIUM 3.9 mmol/L (3.5-5.1); SODIUM 133 mmol/L (136-145); TROPONIN-I <0.06 ng/mL (<0.06)
[2019-12-30 23:54] VITALS: BP 149/53
--- NOTE | 2019-12-31 11:00 | EKG ---
[facility] [address] [address] ELECTROCARDIOGRAM REPORT Name: MICHELECTOR Flynn Room #: DEP [facility]#: [id number] Admission: 12/30/19 Attend Phys: Discharge: 12/31/19 Date of : 34 Report #: [id number] THIS REPORT FOR: cc: FAM - No family physician/PCP FAM - No family physician/PCP Cliff Lan MD ~ THIS REPORT FOR: //name// [facility] ED Test Date: 2019-12-30 Test Time: 20:48:24 Pat Name: ECTOR PEARSON Department: Room: Gender: F Flight/Transport Nurse: [facility] : 1935 Requested By: Eric Dorsey Order Number: [id number] MD: Cliff Lan Measurements Intervals [place] Rate: 75 P: 3 PA: 183 QRS: 30 QRSD: 99 T: 66 QT: 402 QTc: 449 Interpretive Statements Sinus rhythm Nonspecific T abnormalities, anterior leads Compared to ECG 08/28/2019 23:10:32 Inferior Q waves now present Q waves now present T-wave abnormality now present Electronically Signed On 12-31-2019 10:58:54 CDT by Cliff Lan [email or web address] <ELECTRONICALLY SIGNED> By: Cliff Lan MD 12/31/19 1058 47 47 Cliff Lan MD /EPI
== END 2019-12-31 | disposition home or self-care (01) ==
LOC: ER 20:43
PROVIDERS: Emergency Medicine
DX: R55 Syncope and collapse (principal); I10 Essential (primary) hypertension; E03.9 Hypothyroidism, unspecified; K21.9 Gastro-esophageal reflux disease without esophagitis; G47.30 Sleep apnea, unspecified; Z85.3 Personal history of malignant neoplasm of breast; Z98.82 Breast implant status; Z90.13 Acquired absence of bilateral breasts and nipples; Z90.49 Acquired absence of other specified parts of digestive tract; Z90.710 Acquired absence of both cervix and uterus; Z91.048 Other nonmedicinal substance allergy status; Z88.8 Allergy status to other drugs, medicaments and biological substances

== ENCOUNTER 2020-02-12 09:48 | Emergency (ER) | payer OTHER, BC ==
[~2020-02-12] VITALS: Ht 157.5 cm; Wt 76.2 kg
[2020-02-12 09:58] VITALS: BP 140/64
[2020-02-12] MEDS ORDERED: PENICILLIN V P500 MG PO (10:17)
== END 2020-02-12 10:28 | disposition home or self-care (01) ==
LOC: ER 09:48
DX: K04.7 Periapical abscess without sinus (principal); I10 Essential (primary) hypertension; K21.9 Gastro-esophageal reflux disease without esophagitis; E03.9 Hypothyroidism, unspecified; Z90.710 Acquired absence of both cervix and uterus; Z90.49 Acquired absence of other specified parts of digestive tract; Z79.82 Long term (current) use of aspirin; Z79.899 Other long term (current) drug therapy; Z79.2 Long term (current) use of antibiotics; Z88.8 Allergy status to other drugs, medicaments and biological substances; Z91.048 Other nonmedicinal substance allergy status

== ENCOUNTER 2020-02-17 12:31 | Emergency (ER) | payer OTHER, BC ==
[~2020-02-17] VITALS: Ht 157.5 cm; Wt 77.1 kg
[~2020-02-17 12:31] MED LIST changes: +PENICILLIN V P500 MG PO
[2020-02-17] MEDS ORDERED: ATIVAN0.5 M1 PO (16:40)
[2020-02-17] MEDS ORDERED: MECLIZINE HCL25 M1 PO (16:40)
[2020-02-17 16:49] VITALS: BP 129/67
--- NOTE | 2020-02-20 07:40 | EKG ---
[facility] [address] [address] ELECTROCARDIOGRAM REPORT Name: MICHELECTOR Flynn Room #: DEP [facility]#: [id number] Admission: 02/17/20 Attend Phys: Discharge: 02/17/20 Date of : 34 Report #: [id number] THIS REPORT FOR: cc: FAM - Family physician unknown FAM - Family physician unknown Torres Pereyra MD [facility] THIS REPORT FOR: //name// [facility] ED Test Date: 2020-02-17 Test Time: 12:40:32 Pat Name: ECTOR PEARSON Department: Room: Gender: Interim Controller: YENNIFER : 1935 Requested By: Vivek Argueta Order Number: [id number] MD: Torres Pereyra Measurements Intervals [place] Rate: 81 P: 37 [place]: 188 QRS: 49 QRSD: 98 T: 78 QT: 403 QTc: 468 Interpretive Statements Sinus rhythm Nonspecific T abnrm Compared to ECG 12/30/2019 20:48:24 No significant change was found Electronically Signed On 02-20-2020 7:40:28 CDT by Torres Pereyra [email or web address] <ELECTRONICALLY SIGNED> By: Torres Pereyra MD, FAC 02/20/20 0740 1240 1240 Torres Pereyra MD, [facility] /EPI
== END 2020-02-17 16:49 | disposition home or self-care (01) ==
LOC: ER 12:31
DX: R42 Dizziness and giddiness (principal); E66.9 Obesity, unspecified; I10 Essential (primary) hypertension; K21.9 Gastro-esophageal reflux disease without esophagitis; E03.9 Hypothyroidism, unspecified; Z88.5 Allergy status to narcotic agent; Z88.8 Allergy status to other drugs, medicaments and biological substances; Z88.3 Allergy status to other anti-infective agents; Z79.899 Other long term (current) drug therapy; Z79.82 Long term (current) use of aspirin; Z90.49 Acquired absence of other specified parts of digestive tract; Z98.890 Other specified postprocedural states; Z98.42 Cataract extraction status, left eye; Z98.41 Cataract extraction status, right eye; Z90.710 Acquired absence of both cervix and uterus; Z85.3 Personal history of malignant neoplasm of breast

== ENCOUNTER 2020-06-30 11:52 | Emergency (ER) | payer OTHER, BC ==
[~2020-06-30] VITALS: Ht 157.5 cm; Wt 74.8 kg
[~2020-06-30 11:52] MED LIST changes: +ATIVAN0.5 M1 PO; +MECLIZINE HCL25 M1 PO
[2020-06-30 13:02] LABS: ABSOLUTE NEUTROPHILS 5.2 thou/uL (1.4-8.2); BASOPHILS 0.8 % (0.0-2.0); EOSINOPHILS 0.9 % (0.0-3.0); HEMATOCRIT 43.3 % (37.0-47.0); HEMOGLOBIN 14.6 gm/dL (12.0-15.0); MCH 29.1 pg (26.0-34.0); MCHC 33.8 g/dL (28.0-37.0); MCV 86.3 fL (80.0-100.0); PLATELET COUNT 230 thou/uL (150-400); POLYS 65.3 % (36.0-66.0); RBC 5.02 mil/uL (4.20-5.00); RDW 13.8 % (10.5-14.5); WBC 7.9 thou/uL (4.0-11.0)
[2020-06-30 13:11] LABS: CALCIUM 9.1 mg/dL (8.5-10.1); CREATININE 0.8 mg/dL (0.6-1.0); POTASSIUM 4.2 mmol/L (3.5-5.1)
[2020-06-30 13:18] LABS: ALBUMIN 3.7 g/dL (3.4-5.0); TOTAL BILIRUBIN 0.4 mg/dL (0.2-1.0); TOTAL PROTEIN 7.2 g/dL (6.4-8.2)
[2020-06-30] MEDS ORDERED: REQUIP 0.25 M0.25 M1 PO (13:21)
[2020-06-30] MEDS ORDERED: CARVEDILOL6.25 M1 PO (13:21)
[2020-06-30] MEDS ORDERED: OMEPRAZOLE 20 M20 M1 PO (13:22)
[2020-06-30 14:20] LABS: URINE BILIRUBIN NEGATIVE (Negative); URINE BLOOD NEGATIVE (Negative); URINE CLARITY CLEAR; URINE COLOR YELLOW; URINE GLUCOSE-RANDOM* NEGATIVE (Negative); URINE KETONES NEGATIVE (Negative); URINE NITRITE-REFLEX NEGATIVE (Negative); URINE PROTEIN (DIPSTICK) NEGATIVE (Negative); URINE UROBILINOGEN 0.2 E.U./dl (0.2-1.0)
[2020-06-30 14:40] LABS: URINE LEUKOCYTES-REFLEX 1+ (Negative)
[2020-06-30 14:50] LABS: CASTS None Seen /LPF (None Seen); CRYSTALS None Seen /LPF (None Seen); SQUAMOUS 0-3 Few /LPF (0-3); URINE RBC 0-2 Rare /HPF (0-2); URINE WBC-REFLEX 0-5 Rare /HPF (0-5)
[2020-06-30 14:51] LABS: BACTERIA-REFLEX None Seen /HPF (None Seen)
[2020-06-30 16:17] VITALS: BP 148/72
== END 2020-06-30 16:19 | disposition home or self-care (01) ==
LOC: ER 11:52
PROVIDERS: Emergency Medicine
DX: R51.9 Headache, unspecified (principal); R10.31 Right lower quadrant pain; R10.32 Left lower quadrant pain; I10 Essential (primary) hypertension; K21.9 Gastro-esophageal reflux disease without esophagitis; E03.9 Hypothyroidism, unspecified; Z90.49 Acquired absence of other specified parts of digestive tract; Z90.710 Acquired absence of both cervix and uterus; Z79.82 Long term (current) use of aspirin; Z79.899 Other long term (current) drug therapy; Z88.8 Allergy status to other drugs, medicaments and biological substances; Z91.048 Other nonmedicinal substance allergy status; Z20.828 Contact with and (suspected) exposure to other viral communicable diseases

== ENCOUNTER 2020-07-14 13:09 | Emergency (ER) | payer OTHER, BC ==
[~2020-07-14] VITALS: Ht 157.5 cm; Wt 74.4 kg
[~2020-07-14 13:09] MED LIST changes: +CARVEDILOL6.25 M1 PO; +OMEPRAZOLE 20 M20 M1 PO
[2020-07-14 15:31] LABS: ABSOLUTE NEUTROPHILS 4.7 thou/uL (1.4-8.2); BASOPHILS 0.5 % (0.0-2.0); EOSINOPHILS 1.4 % (0.0-3.0); HEMATOCRIT 42.7 % (37.0-47.0); HEMOGLOBIN 14.2 gm/dL (12.0-15.0); LYMPHOCYTES 36.3 % (24.0-44.0); MCHC 33.4 g/dL (28.0-37.0); PLATELET COUNT 230 thou/uL (150-400); POLYS 55.8 % (36.0-66.0); RBC 4.91 mil/uL (4.20-5.00); RDW 13.7 % (10.5-14.5); WBC 8.4 thou/uL (4.0-11.0)
[2020-07-14 15:37] LABS: ANION GAP 9 mmol/L (7-16); BUN 11 mg/dL (7-18); CALCIUM 8.8 mg/dL (8.5-10.1); CHLORIDE 102 mmol/L (98-107); CO2 27 mmol/L (21-32); CREATININE 0.8 mg/dL (0.6-1.0); GLUCOSE 90 mg/dL (74-106); POTASSIUM 4.4 mmol/L (3.5-5.1); SODIUM 138 mmol/L (136-145)
[2020-07-14 15:44] LABS: ALBUMIN 3.8 g/dL (3.4-5.0); DIRECT BILIRUBIN < 0.1 mg/dL (<0.1-0.2); MAGNESIUM 2.1 mg/dL (1.8-2.4); SGOT 16 U/L (15-37); SGPT 27 U/L (30-65); TOTAL BILIRUBIN 0.3 mg/dL (0.2-1.0); TOTAL PROTEIN 6.9 g/dL (6.4-8.2)
[2020-07-14] MEDS ORDERED: LIDODERM1 EACH TOP (17:02)
[2020-07-14 17:25] VITALS: BP 125/55
== END 2020-07-14 17:26 | disposition home or self-care (01) ==
LOC: ER 13:09
PROVIDERS: Emergency Medicine
DX: R07.89 Other chest pain (principal); I10 Essential (primary) hypertension; K21.9 Gastro-esophageal reflux disease without esophagitis; E03.9 Hypothyroidism, unspecified; Z90.711 Acquired absence of uterus with remaining cervical stump; Z90.49 Acquired absence of other specified parts of digestive tract; Z79.899 Other long term (current) drug therapy; Z79.82 Long term (current) use of aspirin; Z88.8 Allergy status to other drugs, medicaments and biological substances; Z91.048 Other nonmedicinal substance allergy status

== ENCOUNTER 2020-09-09 07:50 | Inpatient (IN) | payer OTHER, BC ==
[~2020-09-09] VITALS: Ht 162.6 cm; Wt 61.6 kg
[2020-09-09] VITALS (10 sets, daily range): BP systolic 108–156; BP diastolic 59–113
[~2020-09-09 07:50] MED LIST changes: +LIDODERM1 EACH TOP
[2020-09-09 08:28] LABS: ABSOLUTE NEUTROPHILS 4.8 thou/uL (1.4-8.2); BASOPHILS 0.8 % (0.0-2.0); EOSINOPHILS 1.1 % (0.0-3.0); HEMATOCRIT 45.3 % (37.0-47.0); LYMPHOCYTES 26.9 % (24.0-44.0); MCH 28.5 pg (26.0-34.0); MCV 86.5 fL (80.0-100.0); MONOCYTES 4.5 % (1.0-8.0); PLATELET COUNT 235 thou/uL (150-400); POLYS 66.7 % (36.0-66.0); RBC 5.24 mil/uL (4.20-5.00); RDW 13.8 % (10.5-14.5); WBC 7.2 thou/uL (4.0-11.0)
[2020-09-09 08:34] LABS: ANION GAP 13 mmol/L (7-16); BUN 16 mg/dL (7-18); CALCIUM 9.2 mg/dL (8.5-10.1); CHLORIDE 104 mmol/L (98-107); CO2 24 mmol/L (21-32); CREATININE 0.8 mg/dL (0.6-1.0); GLUCOSE 117 mg/dL (74-106); SODIUM 141 mmol/L (136-145)
[2020-09-09 08:45] LABS: ALBUMIN 3.8 g/dL (3.4-5.0); DIRECT BILIRUBIN 0.1 mg/dL (<0.1-0.2); MAGNESIUM 2.2 mg/dL (1.8-2.4); PHOSPHORUS 2.3 mg/dL (2.6-4.7); SGOT 18 U/L (15-37); SGPT 33 U/L (14-59); TOTAL BILIRUBIN 0.5 mg/dL (0.2-1.0); TOTAL PROTEIN 7.2 g/dL (6.4-8.2); TROPONIN-I <0.06 ng/mL (<0.06)
[2020-09-09 09:13] LABS: URINE BILIRUBIN NEGATIVE (Negative); URINE BLOOD NEGATIVE (Negative); URINE CLARITY CLEAR; URINE COLOR YELLOW; URINE GLUCOSE-RANDOM* NEGATIVE (Negative); URINE KETONES NEGATIVE (Negative); URINE LEUKOCYTES-REFLEX TRACE (Negative); URINE NITRITE-REFLEX NEGATIVE (Negative); URINE PROTEIN (DIPSTICK) NEGATIVE (Negative); URINE UROBILINOGEN 0.2 E.U./dl (0.2-1.0)
--- NOTE | 2020-09-09 13:05 | NUR ---
TO UNIT BY WC FROM Catherine, REPORT FROM ALIREZA WILL. ORIENTED TO UNIT, DIETARY, FALL PRECAUTIONS. DENIES CP, SOA. NSR PER TELE.
--- NOTE | 2020-09-09 14:50 | NUR ---
ORTHOSTATIC BP'S OBTAINED, CHARTED. SHE IS NOT ORTHOSTATIC.
[2020-09-09] MEDS ORDERED: COZAAR 50 MG TA50 MG PO (19:37)
[2020-09-09] MEDS ORDERED: NORVASC 2.5 MG2.5 M1 PO (19:37)
[2020-09-10 03:16] LABS: PROTIME 10.3 Seconds (9.3-11.4)
[2020-09-10 04:13] VITALS: BP 119/59
[2020-09-10 07:35] VITALS: BP 123/52
--- NOTE | 2020-09-10 07:45 | EKG ---
[place] [address] [facility] [place] [address] ELECTROCARDIOGRAM REPORT Name: ECTOR PEARSON Rina Room #: 207-P ADM IN M.R.#: [id number] Admission: 09/09/20 Attend Phys: Chan Tesfaye MD Discharge: Date of : 34 Report #: [id number] [facility] ED Test Date: 2020-09-09 Test Time: 08:00:49 Pat Name: ECTOR PEARSON Department: Room: [facility] Gender: F Application Development Liaison: cu : 1935 Requested By: Bebeto Eastman Order Number: [id number] MD: Torres Pereyra Measurements Intervals [place] Rate: 86 P: 18 [place]: 178 QRS: 43 QRSD: 103 T: 76 QT: 372 QTc: 445 Interpretive Statements Sinus rhythm Multiple premature complexes, supraven Small inferior Q waves Borderline T abnormalities, anterior leads Compared to ECG 02/17/2020 12:40:32 Atrial premature complexes are not present Electronically Signed On 09-10-2020 7:45:17 PROCESS TECHNICIAN by Torres Pereyra [email or web address] <ELECTRONICALLY SIGNED> By: Torres Pereyra MD, [facility] 09/10/2045 9 08 Torres Pereyra MD, [facility] /EPI
--- NOTE | 2020-09-10 07:46 | EKG ---
[address] [facility] [place] [address] ELECTROCARDIOGRAM REPORT Name: MICHELECTOR Room #: 207- ADM IN M.R.#: [id number] Admission: 09/09/20 Attend Phys: Chan Tesfaye MD Discharge: Date of : 33 Report #: [id number] [facility] Test Date: 2020-09-10 Test Time: 07:17:14 Pat Name: ECTOR PEARSON Department: Room: 207 Gender: F Molecular Biology Professor: FELICIA : 1935 Requested By: Chan Tesfaye Order Number: [id number] MD: Torres Pereyra Measurements Intervals [place] Rate: 63 P: 43 FL: 205 QRS: 47 QRSD: 101 T: 81 QT: 424 QTc: 435 Interpretive Statements Sinus rhythm Nonspecific T abnrm, anterolateral leads Compared to ECG 09/09/2020 08:00:49 Atrial premature complexes are no longer present Electronically Signed On 09-10-2020 7:46:08 FARE COLLECTOR by Torres Pereyra [email or web address] <ELECTRONICALLY SIGNED> By: Torres Pereyra MD, [facility] 09/10/2046 6 6 Torres Pereyra MD, FACC /EPI
--- NOTE | 2020-09-10 07:59 | NUR ---
ASSUME CARE 1900. PT/VITALS STABLE. DENIES ANY PAIN. A/O X 4. GOOD ENDURANCE TO ACTIVITY. ASSESSMENT CHARTED. PROGRESSING WELL WITH POC. NO DISTRESS NOTED THROUGH THE SHIFT. PLAN IS NM STRESS TODAY. WILL CONTINUE TO MONITOR AND FOLLOW WITH POC
--- NOTE | 2020-09-10 11:10 | HC ---
[facility] [place] [address] CONSULTATION Name: ECTOR PEARSON Rina Room #: 207-P [facility] IN M.R.#: [id number] Admission: 09/09/20 Attend Phys: Chan Tesfaye MD Discharge: Date of : 34 Report #: [id number] THIS REPORT FOR: cc: Silva Strickland Christine L. DO Park,Cliff Odell MD ~ DATE OF SERVICE: 09/09/2020 CARDIOLOGY CONSULTATION INDICATION: Chest pain. HISTORY OF PRESENT ILLNESS: This is an 85-year-old female with a past medical history significant for hypertension, hypercholesterolemia, sleep apnea, GERD, Meniere's disease and valvular heart disease, presenting with chest pain. For the past week, she has been experiencing dizziness intermittently. Last evening, she developed back pain and left lower extremity discomfort. This morning, she woke up with chest discomfort on the left side, radiating down the left arm. Sometimes it seems to be reproducible with palpation. No change with deep inspiration or movement of the left arm. There is no history of fever, chills or vomiting. She has seen Dr. Cortez in the office for episodes of dizziness and hypertension management. ALLERGIES: Include AMLODIPINE, CARISOPRODOL, DULOXETINE, PHENERGAN, TRAZODONE. PAST MEDICAL HISTORY: Hypertension, hypercholesterolemia, sleep apnea, GERD, Meniere's disease, mild regurgitation. MEDICATIONS: At home include carvedilol twice a day, omeprazole, lisinopril, aspirin, levothyroxine. SOCIAL HISTORY: Denies tobacco use. FAMILY HISTORY: Negative for premature CAD. REVIEW OF SYSTEMS: A full 10-point review of systems performed. Only the pertinent positives and negatives are described in the HPI. PHYSICAL EXAMINATION: VITAL SIGNS: Blood pressure is 130/60, heart rate is 70 beats per minute. GENERAL APPEARANCE: This is an elderly appearing female in no acute distress. HEENT: Normocephalic, atraumatic. Oral mucosa moist. NECK: Supple. LUNGS: Clear to auscultation. CARDIAC: Regular rate and rhythm, S1, S2 positive. [facility] [address] [place] [address] CONSULTATION Name: ECTOR PEARSON Room #: 207-P [facility] IN M.R.#: [id number] Admission: 09/09/20 Attend Phys: Chan Tesfaye MD Discharge: Date of : 34 Report #: [id number] ABDOMEN: Soft, nontender. EXTREMITIES: No cyanosis, trace edema. ECG reveals sinus rhythm, APCs, nonspecific T-wave abnormality. LABORATORY VALUES: Troponin is negative x 1. ASSESSMENT AND PLAN: 1. Chest pain syndrome, the differential diagnosis includes ischemia, musculoskeletal, pleuritic, GI, etc. She has significant risk factors and will need to proceed with a noninvasive stress test. Would proceed with pharmacologic stress testing, doubtful that she would be able to walk on a treadmill. 2. Valvular heart disease known to have mild insufficiency in the past. Does not have any evidence for heart failure at this time. Repeat echo. 3. Hypertension, stable blood pressure at this time. 4. Dizziness, probably related to her Meniere's disease. Check orthostatics. 5. Gastroesophageal reflux disease, continue with PPI. <ELECTRONICALLY SIGNED> By: Cliff Lan MD 09/10/20 1110 [id number] [id number] Cliff Lan MD /nt
--- NOTE | 2020-09-10 13:31 | 2DMMODE ---
[facility] [place] [address] 2 D/M-MODE ECHOCARDIOGRAM Name: ECTOR PEARSON Room #: 207-P ADM IN M.R.#: [id number] Admission: 09/09/20 Attend Phys: Chan Tesfaye MD Discharge: Date of : 34 Report #: [id number] THIS REPORT FOR: cc: Silva Strickland,Silva Le,Cliff Odell MD ~ APPROVED REPORT Study performed: 09/10/2020 10:25:34 EXAM: Comprehensive 2D, Doppler, and color-flow Echocardiogram Patient Location: Bedside Room #: 207 Status: routine BSA: 1.82 HR: 65 bpm BP: 123/52 mmHg Rhythm: NSR Other Information Study Quality: Good Indications Chest Pain Hypertension/HDD 2D Dimensions RVDd: 34.94 mm IVSd: 9.57 (7-11mm) LVOT Diam: 24.53 (18-24mm) LVDd: 41.63 mm PWd: 9.73 (7-11mm) LVDs: 26.69 (25-40mm) Aortic Root: 35.11 mm IVC: 25.00 mm Volumes Left Atrial Volume (Systole) Single Plane 4CH: 49.96 mL Single Plane 2CH: 61.55 mL LA ESV Index: 34.00 mL/m2 Aortic Valve AoV Peak Eddie.: 1.36 m/s AO Peak Gr.: 7.36 mmHg LVOT Max P.75 mmHg LVOT Max V: 0.83 m/s ZENON Vmax: 2.89 cm2 [facility] [address] [place] [address] 2 D/M-MODE ECHOCARDIOGRAM Name: ECTOR PEARSON Room #: 207-P ADM IN Kandy.#: [id number] Admission: 09/09/20 Attend Phys: Chan Tesfaye MD Discharge: Date of : 34 Report #: [id number] Mitral Valve E/A Ratio: 0.8 MV Decel. Time: 238.82 ms MV E Max Eddie.: 0.92 m/s MV A Eddie.: 1.15 m/s MV PHT: 69.26 ms IVRT: 115.34 ms Pulmonary Valve PV Peak Eddie.: 0.81 m/s PV Peak Gr.: 2.65 mmHg Pulmonary Vein P Vein S: 0.51 m/s P Vein A: 0.31 m/s P Vein D: 0.30 m/s P Vein A Dur.: 138.4 msec P Vein S/D Ratio: 1.70 Tricuspid Valve TR Peak Eddie.: 2.68 m/s TR Peak Gr.: 28.70 mmHg PA Pressure: 39.00 mmHg Left Ventricle The left ventricle is normal size. There is normal LV segmental wall motion. There is normal left ventricular wall thickness. The left ventricular systolic function is normal. The left ventricular ejection fraction is within the normal range. LVEF is 55-60%. Grade I - abnormal relaxation pattern. Right Ventricle The right ventricle is normal size. The right ventricular systolic function is normal. Atria Left atrium is at the upper limits of normal. The right atrium size is normal. Aortic Valve The aortic valve is normal in structure. The Aortic valve is sclerotic. Trace aortic regurgitation. There is no aortic valvular stenosis. Mitral Valve The mitral valve is normal in structure. Mild mitral regurgitation. No evidence of mitral valve stenosis. [facility] [place] [address] 2 D/M-MODE ECHOCARDIOGRAM Name: ECTOR PEARSON Room #: 207-P [facility] IN M.R.#: [id number] Admission: 09/09/20 Attend Phys: Chan Tesfaye MD Discharge: Date of : 34 Report #: [id number] Tricuspid Valve The tricuspid valve is normal in structure. There is trace to mild tricuspid regurgitation. Estimated PAP 35 mmHg. Pulmonic Valve The pulmonary valve is normal in structure. Trace pulmonic regurgitation. Great Vessels The aortic root is normal in size. IVC is dilated and collapses >50% with inspiration. Pericardium There is no pericardial effusion. <Conclusion> The left ventricle is normal size. There is normal left ventricular wall thickness. The left ventricular systolic function is normal. Grade I - abnormal relaxation pattern. The right ventricle is normal size. Trace aortic regurgitation. Mild mitral regurgitation. There is trace to mild tricuspid regurgitation. Estimated PAP 35 mmHg. <ELECTRONICALLY SIGNED> By: Cliff Lan MD 09/10/20 1330 29 29 Cliff Lan MD /INF
--- NOTE | 2020-09-10 13:46 | NUR ---
Patient admits with chest pain/vertigo. Patient resides in single story home alone. She reports her son lives nearby. She drives short distances. She uses a walker but her bed if need first in am. She uses a cane in community. She cont to drive short distances. PCP Dr Silva Strickland. Discussed with patient possible home with home health care. Patient reports she [place] want HH [place]. She does not feel necessary. She reports takes care of herself. She plans to exvercise when home she has a stationary bike. casemgt following.
--- NOTE | 2020-09-10 15:03 | NUR ---
AAOX4. STRESS TEST, ECHO TODAY. SR PER TELE. DENIES CP, SOA. FALL PRECAUTIONS IN PLACE.
[2020-09-10 15:15] VITALS: BP 136/56
[2020-09-10 20:45] VITALS: BP 110/55
[2020-09-10] MEDS ORDERED: OMEPRAZOLE 20 M20 M1 PO (20:52)
[2020-09-11 04:22] VITALS: BP 135/61
--- NOTE | 2020-09-11 04:36 | NUR ---
ASSUMED PT CARE AT AROUND 1900, PT IS AWAKE, ALERT AND ORIENTED, SR ON THE MONITOR, ASESSMENTS CHARTED, MEDS GIVEN PER OCT, C/O PAIN ON HER BACK AND BILATERAL HANDS, PAIN MEDS GIVEN WITH PARTIAL RELIEF, NO ACUTE DISTRESS NOTED, WILL CONTINUE TO MONITOR AND FOLLOW POC
[2020-09-11 07:45] VITALS: BP 142/76
[2020-09-11 10:36] VITALS: BP 142/76
--- NOTE | 2020-09-11 11:04 | NUR ---
Assumed patient care around 7:30am, patient had no IV access. A/O*4, vss, afebrile. Patient refused home care on discharge. Left with the son.
--- NOTE | 2020-09-11 11:33 | NUR ---
Spoke with son. Patient to dc home today and has orders for home health care. Patient does not want home health and refusing. Sp with PT who reports she is safe for home and does not need home health care. no further needs
== END 2020-09-11 10:49 | disposition home or self-care (01) | DRG 392 ==
LOC: ER 07:50 → EROBS 10:09 → 2N 10:09
PROVIDERS: Emergency Medicine; ADMIT Internal Medicine; ATTEND Internal Medicine
DX: K21.9 Gastro-esophageal reflux disease without esophagitis (principal); J96.11 Chronic respiratory failure with hypoxia; R07.89 Other chest pain; E03.9 Hypothyroidism, unspecified; H83.3X3 Noise effects on inner ear, bilateral; E78.00 Pure hypercholesterolemia, unspecified; G89.29 Other chronic pain; G47.33 Obstructive sleep apnea (adult) (pediatric); M54.5 Low back pain; I08.3 Combined rheumatic disorders of mitral, aortic and tricuspid valves; R53.81 Other malaise; I10 Essential (primary) hypertension; Z91.09 Other allergy status, other than to drugs and biological substances; Z90.13 Acquired absence of bilateral breasts and nipples; Z85.3 Personal history of malignant neoplasm of breast; Z90.49 Acquired absence of other specified parts of digestive tract; Z90.710 Acquired absence of both cervix and uterus; Z79.899 Other long term (current) drug therapy; Z79.82 Long term (current) use of aspirin; Z88.8 Allergy status to other drugs, medicaments and biological substances
CPT/HCPCS: 10081

== ENCOUNTER 2021-01-05 19:54 | Emergency (ER) | payer OTHER, BC ==
[~2021-01-05] VITALS: Ht 157.5 cm; Wt 75.8 kg
[~2021-01-05 19:54] MED LIST changes: +COZAAR 50 MG TA50 MG PO; +NORVASC 2.5 MG2.5 M1 PO
[2021-01-05 20:53] LABS: ABSOLUTE NEUTROPHILS 4.5 thou/uL (1.4-8.2); EOSINOPHILS 2.1 % (0.0-3.0); HEMATOCRIT 41.9 % (37.0-47.0); HEMOGLOBIN 13.9 gm/dL (12.0-15.0); LYMPHOCYTES 30.2 % (24.0-44.0); MCH 29.1 pg (26.0-34.0); MCHC 33.2 g/dL (28.0-37.0); MCV 87.7 fL (80.0-100.0); MONOCYTES 6.6 % (1.0-8.0); PLATELET COUNT 208 thou/uL (150-400); POLYS 60.1 % (36.0-66.0); RBC 4.78 mil/uL (4.20-5.00); RDW 14.2 % (10.5-14.5); WBC 7.5 thou/uL (4.0-11.0)
[2021-01-05 21:00] LABS: ANION GAP 7 mmol/L (7-16); BUN 16 mg/dL (7-18); CALCIUM 8.7 mg/dL (8.5-10.1); CHLORIDE 106 mmol/L (98-107); CO2 29 mmol/L (21-32); CREATININE 0.8 mg/dL (0.6-1.0); GLUCOSE 93 mg/dL (74-106); POTASSIUM 4.2 mmol/L (3.5-5.1); SODIUM 142 mmol/L (136-145)
[2021-01-05 21:11] LABS: ALBUMIN 3.7 g/dL (3.4-5.0); LIPASE 78 U/L (73-393); SGOT 20 U/L (15-37); SGPT 28 U/L (14-59); TOTAL BILIRUBIN 0.3 mg/dL (0.2-1.0); TOTAL PROTEIN 7.1 g/dL (6.4-8.2); TROPONIN-I <0.06 ng/mL (<0.06)
[2021-01-05 21:26] VITALS: BP 129/50
--- NOTE | 2021-01-06 13:13 | EKG ---
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
== END 2021-01-05 21:32 | disposition home or self-care (01) ==
LOC: ER 19:54
PROVIDERS: Emergency Medicine
DX: K21.9 Gastro-esophageal reflux disease without esophagitis (principal); I10 Essential (primary) hypertension; Z88.8 Allergy status to other drugs, medicaments and biological substances; Z79.82 Long term (current) use of aspirin; Z79.899 Other long term (current) drug therapy

== ENCOUNTER 2021-03-10 03:41 | Emergency (ER) | payer OTHER, BC ==
[~2021-03-10] VITALS: Ht 157.5 cm; Wt 74.8 kg
[2021-03-10 04:58] VITALS: BP 140/84
== END 2021-03-10 04:55 | disposition home or self-care (01) ==
LOC: ER 03:41
DX: R21 Rash and other nonspecific skin eruption (principal); I10 Essential (primary) hypertension; K21.9 Gastro-esophageal reflux disease without esophagitis; E03.9 Hypothyroidism, unspecified; Z90.710 Acquired absence of both cervix and uterus; Z90.49 Acquired absence of other specified parts of digestive tract; Z79.2 Long term (current) use of antibiotics; Z79.82 Long term (current) use of aspirin; Z79.899 Other long term (current) drug therapy; Z88.6 Allergy status to analgesic agent; Z88.1 Allergy status to other antibiotic agents; Z90.12 Acquired absence of left breast and nipple

== ENCOUNTER 2021-04-09 09:35 | Emergency (ER) | payer OTHER, BC ==
[~2021-04-09] VITALS: Ht 157.5 cm; Wt 74.8 kg
[2021-04-09 10:23] LABS: URINE BILIRUBIN NEGATIVE (Negative); URINE BLOOD NEGATIVE (Negative); URINE CLARITY CLEAR; URINE COLOR YELLOW; URINE GLUCOSE-RANDOM* NEGATIVE (Negative); URINE KETONES NEGATIVE (Negative); URINE LEUKOCYTES-REFLEX NEGATIVE (Negative); URINE NITRITE-REFLEX NEGATIVE (Negative); URINE PROTEIN (DIPSTICK) NEGATIVE (Negative); URINE SPECIFIC GRAVITY <= 1.005 (1.005-1.035); URINE UROBILINOGEN 0.2 E.U./dl (0.2-1.0)
[2021-04-09] MEDS ORDERED: MEDROLDOSEPACK PO ×2 (11:46→11:49)
[2021-04-09] MEDS ORDERED: LIDODERM1 EACH TOP ×2 (11:46→11:49)
[2021-04-09 11:55] VITALS: BP 136/78
== END 2021-04-09 11:55 | disposition home or self-care (01) ==
LOC: ER 09:35
PROVIDERS: Student in an Organized Health Care Education/Training Program
DX: M16.11 Unilateral primary osteoarthritis, right hip (principal); I10 Essential (primary) hypertension; K21.9 Gastro-esophageal reflux disease without esophagitis; G47.30 Sleep apnea, unspecified; E03.9 Hypothyroidism, unspecified; Z90.710 Acquired absence of both cervix and uterus; Z90.49 Acquired absence of other specified parts of digestive tract; Z79.82 Long term (current) use of aspirin; Z79.899 Other long term (current) drug therapy; Z91.048 Other nonmedicinal substance allergy status; Z88.6 Allergy status to analgesic agent; Z88.8 Allergy status to other drugs, medicaments and biological substances; Z88.2 Allergy status to sulfonamides

== ENCOUNTER → 2021-05-23 | Outpatient (CLI) | payer OTHER, BC ==
[~2021-05-23] MED LIST changes: +MEDROLDOSEPACK PO
== END ==
LOC: MRI 12:07
PROVIDERS: ATTEND Internal Medicine
DX: R42 Dizziness and giddiness (principal)

== ENCOUNTER → 2021-06-04 | Outpatient (CLI) | payer OTHER, BC ==
[2021-06-04 14:07] LABS: CREATININE 0.9 mg/dL (0.6-1.0)
== END ==
LOC: MRI 13:14
DX: I67.82 Cerebral ischemia (principal); E23.6 Other disorders of pituitary gland

== ENCOUNTER 2021-09-21 21:48 | Emergency (ER) | payer OTHER, BC ==
[~2021-09-21] VITALS: Ht 157.5 cm; Wt 74.8 kg
[2021-09-21 23:01] LABS: ABSOLUTE NEUTROPHILS 3.8 thou/uL (1.4-8.2); BASOPHILS 0.6 % (0.0-2.0); EOSINOPHILS 2.3 % (0.0-3.0); HEMOGLOBIN 13.3 gm/dL (12.0-15.0); LYMPHOCYTES 28.5 % (24.0-44.0); MCHC 33.2 g/dL (28.0-37.0); MCV 87.2 fL (80.0-100.0); MONOCYTES 7.8 % (1.0-8.0); PLATELET COUNT 218 thou/uL (150-400); POLYS 60.8 % (36.0-66.0); RBC 4.59 mil/uL (4.20-5.00); RDW 14.9 % (10.5-14.5); WBC 6.3 thou/uL (4.0-11.0)
[2021-09-21 23:10] LABS: URINE BILIRUBIN NEGATIVE (Negative); URINE BLOOD NEGATIVE (Negative); URINE CLARITY CLEAR; URINE COLOR YELLOW; URINE GLUCOSE-RANDOM* NEGATIVE (Negative); URINE KETONES NEGATIVE (Negative); URINE LEUKOCYTES-REFLEX NEGATIVE (Negative); URINE NITRITE-REFLEX NEGATIVE (Negative); URINE PROTEIN (DIPSTICK) NEGATIVE (Negative); URINE UROBILINOGEN 0.2 E.U./dl (0.2-1.0)
[2021-09-21 23:11] LABS: CALCIUM 8.4 mg/dL (8.5-10.1); CREATININE 0.7 mg/dL (0.6-1.0); POTASSIUM 3.8 mmol/L (3.5-5.1)
[2021-09-21 23:19] LABS: ALBUMIN 3.2 g/dL (3.4-5.0); MAGNESIUM 2.1 mg/dL (1.8-2.4); TOTAL BILIRUBIN 0.3 mg/dL (0.2-1.0); TOTAL PROTEIN 6.3 g/dL (6.4-8.2)
[2021-09-22 01:20] VITALS: BP 157/49
--- NOTE | 2021-09-22 11:10 | EKG ---
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 : 1935 Requested By: Gem Hartley Order Number: [id number] MD: Torres Pereyra Measurements Intervals [place] Rate: 71 P: 48 WI: 204 QRS: 51 QRSD: 96 T: 50 QT: 392 QTc: 426 Interpretive Statements Sinus rhythm Nonspecific T abnormalities, anterior leads Compared to ECG 01/05/2021 20:28:21 No significant changes Electronically Signed On 09-22-2021 11:09:49 FLOOR STEWARD/STEWARDESS by Torres Pereyra [email or web address] <ELECTRONICALLY SIGNED> By: Torres Pereyra MD, [facility] 09/22/21 1109 [id number] [id number] Torres Pereyra MD, FACC /EPI
== END 2021-09-22 01:30 | disposition home or self-care (01) ==
LOC: ER 21:48
PROVIDERS: Nurse Practitioner
DX: R55 Syncope and collapse (principal); R06.02 Shortness of breath; E03.9 Hypothyroidism, unspecified; I10 Essential (primary) hypertension; K21.9 Gastro-esophageal reflux disease without esophagitis; Z88.1 Allergy status to other antibiotic agents; Z88.8 Allergy status to other drugs, medicaments and biological substances; Z79.899 Other long term (current) drug therapy; Z90.89 Acquired absence of other organs; Z90.710 Acquired absence of both cervix and uterus; Z90.49 Acquired absence of other specified parts of digestive tract